=== PATIENT | male | born 1975 | race Hispanic/Latino ===

== ENCOUNTER 2023-02-19 21:45 | Emergency (ER) | payer OTHER ==
[~2023-02-19] VITALS: Ht 175.3 cm; Wt 65.8 kg
[2023-02-19 21:47] VITALS: BP 125/80; PULSE 79; RESP 16
== END 2023-02-19 22:59 | disposition home or self-care (01) ==
LOC: EDH 21:45
DX: Z48.02 Encounter for removal of sutures (principal); I10 Essential (primary) hypertension